=== PATIENT | male | born 1965 | race Caucasian/White ===

== ENCOUNTER → 2022-01-14 14:56 | Outpatient (CLI) | payer OTHER, SELFPAY ==
[2022-01-14 15:20] VITALS: PULSE 84; PULSE 88
--- NOTE | 2022-01-14 15:46 | XR_ITS ---
FINAL REPORT CLINICAL HISTORY: CHRONIC COUGH FINDINGS: Two views of the chest were obtained. The heart size and pulmonary vascularity are within normal limits. The mediastinum is normal. No acute pulmonary abnormality is identified. There is no pneumothorax. The bony thorax is intact. IMPRESSION: No active cardiopulmonary disease. Reviewed, Interpreted and Dictated by Juvenal March III, MD Transcribed by Haider Roblero Authenticated and [facility]
== END ==
PROVIDERS: Visit Provider Chiropractor
DX: R05.1 Acute cough (principal)
CPT/HCPCS: 71046; 94060; 94640